=== PATIENT | male | born 1995 | race Caucasian/White ===

== ENCOUNTER 2025-01-06 19:57 | Emergency (ER) | payer SELFPAY ==
[2025-01-06] MEDS ORDERED: Naloxone 0.4 MG/ML SDV IVPUSH PRN (21:20)
== END 2025-01-07 00:38 | disposition home or self-care (01) ==
LOC: JP.ED 19:57
DX: S82.232A Displaced oblique fracture of shaft of left tibia, initial encounter for closed fracture (principal); S82.62XA Displaced fracture of lateral malleolus of left fibula, initial encounter for closed fracture; F17.200 Nicotine dependence, unspecified, uncomplicated; X50.9XXA Other and unspecified overexertion or strenuous movements or postures, initial encounter; Y93.72 Activity, wrestling
CPT/HCPCS: 73590-26-LT; 73590-LT; 73610-26-LT; 73610-LT; 96374; 96376; 99283; 99283-25; J1171